=== PATIENT | male | born 1975 | race Caucasian/White ===

== ENCOUNTER 2017-12-18 20:21 | Emergency (ER) ==
[2017-12-18 20:25] VITALS: BP 132/80; TEMP 97.7; BMI 33.5
--- NOTE | 2017-12-18 21:12 | ED.PDOC ---
General ED Provider: Dr. AP SANDERS Chief Complaint: Chest Pain Stated Complaint: Pateint is a 42 year old male who comes to the ER with compalints of sudden onset of chest pain associated with diaphoresis and shortness of breath. Then he started having numbness to both arms bilaterally. Admits to smoking 1PPD x 20 years Time Seen by Physician: 20:30 Mode of Arrival: Walk-In Information Source: Patient Exam Limitations: No limitations Nursing and Triage Documentation Reviewed and Agree: Yes Does patient meet sepsis criteria?: No If yes, has appropriate treatment been initiated?: No System Inflammatory Response Syndrome: Not Applicable Sepsis Protocol: For patient's 13 years and over: Temp is 96.8 and below OR 101 and greater Pulse >90 BPM Resp >20/minute Acutely Altered Mental Status Are patient's symptoms suggestive of a new infection, such as: -Pneumonia -Skin, Soft Tissue -Endocarditis -UTI -Bone, Joint Infection -Implantable Device -Acute Abdominal Infection -Wound Infection -Meningitis -Blood Stream Catheter Infection -Unknown Cardiovascular Complaint Exam - Chest Pain Complaint/Exam Onset: Sudden Duration: 15-20 min Symptoms Are: Resolved Length of Chest Pain Episodes: 20 min Initial Severity: Severe Current Severity: None Location: Reports: Midsternal Pain Radiates: Reports: Left arm, Right arm Character: Reports: Tightness, Heaviness Alleviating: Reports: Rest Associated Signs and Symptoms: Reports: Diaphoresis, Nausea, Dizziness, Short of air Related History: Denies: Similar episode, Current Awais Inhibitors, Current ARBs AMI/ACS Risk Factors: Reports: None TAD Risk Factors: Reports: None Pulmonary Embolism Risk Factors: Reports: None Prior Care for this Complaint: No Recent Stress Test: No Recent Echo/LV Function: No JVD Present: No Subcutaneous Emphysema Present: No Diminshed Breath Sounds: No Reproducible Chest Wall Pain: No Bilateral Pulses Present: No Unequal Pulses Noted: No If Risk Factors for AMI/ACS Consider: EKG, Cardiac Enzymes, Serial Studies, Aspirin Documents Reviewed: Medical records, Labs, Imaging [employer] Technician Consulted: No Differential Diagnoses: Acute VT, ACS, Stable Angina, Chest Wall Pain, Other ( pleuricy ) Patient Advised to Stop Smoking: Yes Review of Systems - Review Of Systems Constitutional: Reports: Diaphoresis, Loss of appetite Eyes: Reports: No symptoms Ears, Nose, Mouth, Throat: Reports: No symptoms Respiratory: Reports: No symptoms Cardiac: Reports: Chest pain GI: Reports: Nausea : Reports: No symptoms Musculoskeletal: Reports: No symptoms Neurological: Reports: Anxiety Endocrine: Reports: No symptoms Hematologic/Lymphatic: Reports: No symptoms All Other Systems: Reviewed and Negative Past Medical History - Past Medical History Previously Healthy: Yes Endocrine: Reports: None Cardiovascular: Reports: None Respiratory: Reports: None Hematological: Reports: None Gastrointestinal: Reports: None Genitourinary: Reports: None Neuro/Psych: Reports: None Musculoskeletal: Reports: None Cancer: Reports: None - Surgical History General Surgical History: Reports: None - Family History Family History: Reports: Heart (at age 70 ) - Social History Smoking Status: Current every day smoker, Heavy tobacco smoker Hx Substance Use: No Alcohol Screening: Occasionally - Immunizations Tetanus Shot up to Date: Yes Physical Exam - Physical Exam Appearance: Ill-appearing, Obese Ill-appearing: Moderate Pain Distress: Severe Neck: Supple Respiratory: Airway patent, Breath sounds clear, Breath sounds equal, Respirations nonlabored Cardiovascular: RRR, Pulses normal, No rub, No murmur GI/: Soft, Nontender, No masses, Bowel sounds normal, No Organomegaly Musculoskeletal: Normal strength, ROM intact, No edema, No calf tenderness Skin: Warm, Dry, Normal color Neurological: Sensation intact, Motor intact, Reflexes intact, Cranial nerves intact, Alert, Oriented Psychiatric: Anxious Interpretation - Radiology Interpretation Radiology Interpretation By: ED Physician Radiology Results: Negative Exam Interpreted: Portable CXR - Handkerchief Presser Rate: Normal Rhythm: Sinus Ectopy: None - EKG Interpretation Rate: Normal Rhythm: Sinus Ectopy: None Lyn[place]: NL ST Segment: Normal Interpretation: Normal EKG Re-Evaluation - Re-Evaluation Time of Re-Evaluation: 22:53 Status: Improved Pain Level: improved. Critical Care Note - Critical Care Note Total Time (mins): 0 Course - Course Hematology/Chemistry: 12/18/17 20:50 12/18/17 20:50 Orders, Labs, Meds: Lab Review 12/18/17 12/18/17 12/18/17 20:50 20:50 20:50 WBC 8.30 RBC 5.01 Hgb 13.6 L Hct 41.1 L MCV 82.0 MCH 27.1 MCHC 33.1 RDW Coeff of Laya 12.4 Plt Count 153 Immature Gran % (Auto) 0.2 Neut % (Auto) 48.3 Lymph % (Auto) 38.7 [place] % (Auto) 7.0 Eos % (Auto) 5.1 Baso % (Auto) 0.7 Immature Gran # (Auto) 0.0 Neut # (Auto) 4.0 Lymph # (Auto) 3.2 [place] # (Auto) 0.6 Eos # (Auto) 0.4 Baso # (Auto) 0.1 Sodium 132 L Potassium 3.2 L Chloride 101 Carbon Dioxide 26 Anion Gap 8.2 BUN 19 H Creatinine 1.20 H Estimated GFR (MDRD) 67.00 BUN/Creatinine Ratio 15.83 Glucose 143 H Calcium 9.2 Total Bilirubin 0.4 AST 21 ALT 24 Alkaline Phosphatase 47 L Total Creatine Kinase 171 CK-MB (CK-2) 1.5 CK-MB (CK-2) % 0.94334 Troponin I < 0.0100 B-Natriuretic Peptide 12 Total Protein 7.0 Albumin 4.0 Globulin 3.0 Albumin/Globulin Ratio 1.33 Triglycerides Cholesterol LDL Cholesterol, Calc VLDL Cholesterol HDL Cholesterol Cholesterol/HDL Ratio TSH 12/18/17 22:55 WBC RBC Hgb Hct MCV MCH MCHC RDW Coeff of Laya Plt Count Immature Gran % (Auto) Neut % (Auto) Lymph % (Auto) [place] % (Auto) Eos % (Auto) Baso % (Auto) Immature Gran # (Auto) Neut # (Auto) Lymph # (Auto) [place] # (Auto) Eos # (Auto) Baso # (Auto) Sodium Potassium Chloride Carbon Dioxide Anion Gap BUN Creatinine Estimated GFR (MDRD) BUN/Creatinine Ratio Glucose Calcium Total Bilirubin AST ALT Alkaline Phosphatase Total Creatine Kinase CK-MB (CK-2) CK-MB (CK-2) % Troponin I < 0.0100 B-Natriuretic Peptide Total Protein Albumin Globulin Albumin/Globulin Ratio Triglycerides 216 H Cholesterol 174 LDL Cholesterol, Calc 98 VLDL Cholesterol 43 H HDL Cholesterol 33 L Cholesterol/HDL Ratio 5.3 TSH 1.564 Orders Category Date Time Status EKG-(ED ONLY) Stat CARDIO 12/18/17 21:29 Completed NPO REMINDER: LAB TEST ONCE CARE 12/18/17 22:53 Active ED IV/MEDIPORT/POWERPORT .ONCE EMERGENCY 12/18/17 21:29 Active B-TYPE NATRIURETIC PEPTIDE Stat LAB 12/18/17 20:50 Completed CBC W/ AUTO DIFF Stat LAB 12/18/17 20:50 Completed COMPREHENSIVE METABOLIC PANEL Stat LAB 12/18/17 20:50 Completed CREATINE KINASE Stat LAB 12/18/17 20:50 Completed LIPID PANEL Stat LAB 12/18/17 22:55 Completed THYROID STIMULATING HORMONE Stat LAB 12/18/17 22:55 Completed TROPONIN I Stat LAB 12/18/17 20:50 Completed TROPONIN I Stat LAB 12/18/17 22:55 Completed 0.9 % Sodium Chloride [Saline Flush] MEDS 12/18/17 21:29 Discontinued 1 syr IVF PRN PRN Aspirin [Aspirin EC] MEDS 12/18/17 21:29 Discontinued 325 mg PO ONCE STA CHEST, 1V AP ONLY Stat RADS 12/18/17 21:29 Taken Medications Discontinued Medications Generic Name Dose Route Start Last Admin Trade Name Freq PRN Reason Stop Dose Admin Aspirin 325 mg 12/18/17 21:29 12/18/17 21:52 Aspirin Ec PO 12/18/17 21:30 325 mg ONCE STA Administration Sodium Chloride 1 syr 12/18/17 21:29 Saline Flush IVF PRN PRN To flush IV Vital Signs: Temp Pulse Resp BP Pulse Ox 12/18/17 20:22 97.7 F 77 16 132/80 97 SUMANTH Risk Score Age >/= 65: No >/= 3 CAD Risk Factors: Yes Known CAD (Stenosis >/= 50%): No ASA Use in Past 7 Days: No Severe Angina (>/= 2 episodes in 24 hours): No EKG ST Changes >/= 0.5mm: No Postive Cardiac Marker: No SUMANTH Total Score: 1 SUMANTH Risk Score: Risk Score Odds of by 30D 0 0.1 (0.1-0.2) 1 0.3 (0.2-0.3) 2 0.4 (0.3-0.5) 3 0.7 (0.6-0.9) 4 1.2 (1.0-1.5) 5 2.2 (1.9-2.6) 6 3.0 (2.5-3.6) 7 4.8 (3.8-6.1) Departure - Departure Time of Disposition: 23:50 Disposition: HOME SELF-CARE Discharge Problem: Chest pain Instructions: Chest Pain (ED) Condition: Stable Pt referred to PMD for follow-up: Yes IPMP verified?: No Additional Instructions: Follow up with the clinic or a Local doctor for Stress testing STOP smoking Return if worse Allergies/Adverse Reactions: Allergies No Known Allergies Allergy (Unverified 12/18/17 20:25) Home Medications: Ambulatory Orders 1 [No Reported Medications] 12/18/17 Disposition Discussed With: Patient, Family
[2017-12-18] MEDS ORDERED: ASPIRIN EC PO STA (21:29)
--- NOTE | 2017-12-19 08:25 | DI ---
EXAM: Chest one view HISTORY: Chest pain COMPARISON: None TECHNIQUE: Single view of the chest was performed FINDINGS: The lungs are clear. There is no pleural effusion or pneumothorax. The heart is normal i n size. The mediastinal contour is normal. There are no acute abnormalities of the bones. IMPRESSION: No acute cardiopulmonary process.
== END 2017-12-18 23:59 | disposition home or self-care (01) ==
LOC: ED 20:21
DX: R07.9 Chest pain, unspecified (principal); R06.02 Shortness of breath; F17.210 Nicotine dependence, cigarettes, uncomplicated
CPT/HCPCS: 36415; 80053; 80061; 82550; 82553; 83880; 84443; 84484; 85025; 93005; 93010; 99284